=== PATIENT | male | born 1945 ===

== ENCOUNTER → 2021-06-19 09:26 | Outpatient (CLI) | payer MEDICARE, OTHER, SELFPAY ==
--- NOTE | ~2021-06-19 | MR_ITS ---
EXAMINATION: MR lumbar spine wo con EXAM DATE: 06/19/2021 10:50 INDICATION: Other low back pain. Previous low back surgery 2018. TECHNIQUE: Multi-sequential, multiplanar MR images of the lumbar spine were obtained without contrast . Sagittal T1, T2, T2 fat saturation images. Axial T2 weighted images. There is no prior study for comparison. FINDINGS: There is abnormal infiltrative appearing signal abnormality possibly partially encasing the right common iliac artery, appears to be somewhat infiltrative retroperitoneal mass. Fibrosis would expected to be lower in signal intensity. Could be lymphoma, metastatic disease or other malignancy. This is incompletely imaged and a CT scan abdomen pelvis with contrast is recommended. Posterior fusion L3-5. L3 and L4 laminectomies. The conus medullaris terminates at the T12-L1 level a nd has normal signal intensity and morphology. There is mild disc disease L-1-L3 and L4-S1. Increased T1, T2 signal within the L3-4 disc space without endplate edema, no discitis is suspected. Level by level evaluation: T12-L1: Disc does not extend beyond the endplate margin. Facet arthropathy: Mild to moderate right, mild left Neural foraminal stenosis: No stenosis. Central canal stenosis: No stenosis. L1-L2: There is a mild diffuse disc bulge. Facet arthropathy: Moderate. Neural foraminal stenosis: Mild bilateral. Central canal stenosis: Mild. L2-L3: There is a moderate diffuse disc bulge. Facet arthropathy: Moderate to severe. Neural foraminal stenosis: Moderate bilateral, right greater than left. Central canal stenosis: Moderate, nerve root crowding with minimal CSF space. L3-L4: Disc does not extend beyond the endplate margin. Facet arthropathy: Moderate. Neural foraminal stenosis: Mild to moderate right, no left. Central canal stenosis: Posterior decompression. L4-L5: There is a mild diffuse disc bulge. Facet arthropathy: Poorly visualized. Neural foraminal stenosis: Moderate right. Central canal stenosis: Posterior decompression. L5-S1: There is a mild diffuse disc bulge. Facet arthropathy: Moderate bilateral. Neural foraminal stenosis: Mild to moderate bilateral. Central canal stenosis: Mild. IMPRESSION: 1. Retroperitoneal mass at the pelvic inlet, could be lymphoma or other malignancy; CT chest, abdome n pelvis with contrast (chest would also evaluate the thoracic aorta). 2. L2-3 moderate disc disease, moderate to severe facet arthropathy and central canal stenosis with nerve root crowding. I left a message for Paula Mendez, [employer] at 06/19/2021 11:53 PC TECHNICIAN. Also left my direct phone number for any questions. Reviewed, dictated and finalized at location A. TECHNICIAN IMPRESSION: 1. Retroperitoneal mass at the pelvic inlet, could be lymphoma or other malign juan francisco; CT chest, abdomen pelvis with contrast (chest would also evaluate the tho racic aorta). 2. L2-3 moderate disc disease, moderate to severe facet arthropathy and centra l canal stenosis with nerve root crowding. I left a message for Paula Hart*, [employer] at 06/19/2021 11:53 PC TECHNICIAN. Also left m y direct phone number for any questions.
--- NOTE | ~2021-06-19 | MR_ITS ---
EXAMINATION: MR thoracic spine wo con EXAM DATE: 06/19/2021 10:44 INDICATION: Back pain, thoracic. TECHNIQUE: Multi-sequential, multiplanar MR images of the thoracic spine were obtained without contra st. Sagittal T1, T2, T2 fat saturation, axial T2 weighted images reviewed. There is no prior study for comparison. FINDINGS: There is mild mid thoracic disc disease and mild to moderate diffuse thoracic facet arthrop athy. The descending thoracic aorta measures 3.9 cm, mildly dilated. Thoracic central canal and neura l foramen are patent. The spinal cord signal intensity and intrinsic morphology is normal. Paraspinal soft tissue is unremarkable. Patient has diffuse idiopathic skeletal hyperostosis (DISH). IMPRESSION: 1. Mild to moderate thoracic facet arthropathy, mild disc disease. 2. Mildly aneurysmal descending thoracic aorta. 3. No stenosis. Reviewed, dictated and finalized at location A. K SETTER
== END ==
PROVIDERS: Visit Provider Nurse Practitioner Family
DX: M47.815 Spondylosis without myelopathy or radiculopathy, thoracolumbar region (principal); M48.05 Spinal stenosis, thoracolumbar region; M47.817 Spondylosis without myelopathy or radiculopathy, lumbosacral region; M48.07 Spinal stenosis, lumbosacral region; M48.14 Ankylosing hyperostosis [Forestier], thoracic region; I71.4 Abdominal aortic aneurysm, without rupture
CPT/HCPCS: 72146; 72148

== ENCOUNTER 2021-10-15 09:56 | Outpatient (CLI) | payer MEDICARE, OTHER, SELFPAY ==
--- NOTE | 2021-10-15 10:22 | ECG_ITS ---
Measurements Intervals [place] Rate: 64 P: 48 WI: 194 QRS: -24 QRSD: 82 T: 42 QT: 408 QTc: 422 Interpretive Statements SINUS OR ECTOPIC ATRIAL RHYTHM WITH MARKED SINUS ARRHYTHMIA ANTEROSEPTAL INFARCT, AGE INDETERMINATE INFERIOR INFARCT, AGE INDETERMINATE BASELINE WANDER- I, II, AVR, AVL ABNORMAL ECG Electronically Signed On 10-15-2021 12:18:23 CDT by Jose Swanson D.O.
[2021-10-15 10:26] LABS: Basophils Percent Auto 0.5 % (0.2-1.2); Eosinophils Absolute Auto 0.1 K/mm3 (0-0.3); Eosinophils Percent Auto 1.5 % (0-4.4); Hematocrit 37.5 % (42.0-52.0); Hemoglobin 11.9 g/dL (14.0-18.0); Immature Granulocyte Absolute 0.02 K/mm3 (0.00-0.031); Immature Granulocyte Percent A 0.3 % (0-0.5); Lymphocytes Absolute Auto 0.17 K/mm3 (0.9-3.2); Lymphocytes Percent Auto 2.6 % (18.3-44.2); Mean Corpuscular HGB Conc 31.7 g/dl (32-36); Mean Corpuscular Hemoglobin 28.2 pg (26-34); Mean Corpuscular Volume 88.9 fl (80-100); Mean Platelet Volume 9.3 fl (7.4-10.4); Monocytes Absolute Auto 0.8 K/mm3 (0.1-0.6); Monocytes Percent Auto 12.4 % (2.6-8.5); Neutrophils Absolute Auto 5.4 K/mm3 (1.3-6.7); Neutrophils Percent Auto 82.7 % (45.5-73.1); Platelet Count Result 168 k/mm3 (150-375); Red Blood Count 4.22 M/mm3 (4.6-6.20); Red Cell Distribution Width 15.6 % (11.5-14.5); White Blood Count 6.5 K/mm3 (4.5-10.0)
[2021-10-15 10:27] LABS: Appearance Urine Clear (Clear); Bilirubin Urine Negative (Negative); Blood Urine Negative (Negative); Color Urine Yellow (Yellow); Glucose Urine UA Negative (Negative); Ketones Urine Negative (Negative); Leukocyte Esterase Ur Negative LEU/UL (Negative); Nitrate Urine Negative (Negative); Protein Urine Negative (Negative); Urobilinogen Urine 0.2 mg/dL (<2.0)
[2021-10-15 10:30] LABS: Add Urine Microscopic? NO
[2021-10-15 10:40] LABS: Anion Gap 7 mmol/L (8-16); Blood Urea Nitrogen 16 mg/dL (9-20); CRP 2.6 mg/dL (<1.0); Calcium 9.2 mg/dL (8.4-10.2); Carbon Dioxide 29 mmol/L (22-30); Chloride 104 mmol/L (98-107); Estimated Glomerular Filt Rate > 60; Glucose 101 mg/dL (65-110); Sodium 140 mmol/L (137-145)
[2021-10-15 11:21] LABS: Erythrocyte Sedimentation Rate 66 mm/hr (0-20)
== END 2021-10-15 09:57 | disposition home or self-care (01) ==
PROVIDERS: Visit Provider Nurse Practitioner Family
DX: Z01.810 Encounter for preprocedural cardiovascular examination (principal); R94.31 Abnormal electrocardiogram [ECG] [EKG]
CPT/HCPCS: 36415; 80048; 81003; 85025; 85652; 86140; 93005